=== PATIENT | male | born 1955 | race Caucasian/White ===

== ENCOUNTER 2021-09-26 20:27 | Emergency (ER) | payer MEDICARE, BC, SELFPAY ==
--- NOTE | ~2021-09-26 | XR_ITS ---
EXAM: XR foot RT min 3V DATE: 09/26/2021 21:02 HISTORY: DROPPED OBJECT ON FOOT, SWELLING/ABRASION ANTERIOR TARSALS . COMPARISON: None available. FINDINGS: Decreased mineralization. No fracture or dislocation. No lytic or blastic lesion. Joint sp aces are maintained. Plantar enthesopathy. No erosion or periosteal change. Dorsal soft tissue swelli ng. IMPRESSION: No acute osseous finding in the right foot. Reviewed, dictated and finalized at location K.
[2021-09-26 20:28] VITALS: BP 128/72; PULSE 69; RESP 16; TEMP 36.4; O2SAT 97
--- NOTE | 2021-09-26 21:13 | ED.LOWEXIN ---
HPI - Extremity Injury (Lower) General Chief Complaint: Extremity Injury, Lower Stated Complaint: Right foot injury Time Seen by Provider: 09/26/21 20:41 History of Present Illness HPI Narrative: 66-year-old male presents the emergency room for evaluation of right foot injury. Patient states that he dropped a heavy flute grinder on it about 2 hours prior to arrival. States he took a 10 mg THC gummy and is now pain-free. Patient was able to ambulate following injury. Review of Systems Review of Systems: CONSTITUTIONAL: Denies fever, chills, or sweats. EYES: Denies visual changes, redness, or discharge. ENT: Denies rhinorrhea, congestion, sore throat, or otalgia. CARDIOVASCULAR: Denies chest pain, palpitations, or edema. RESPIRATORY: Denies cough or dyspnea. GASTROINTESTINAL: Denies abdominal pain, nausea, vomiting, or diarrhea. GENITOURINARY: Denies dysuria or hematuria. SKIN: Denies rash or itching. MUSCULOSKELETAL: Reports right foot pain NEUROLOGIC: Denies headache, numbness, dizziness, or weakness. PSYCHIATRIC: Denies anxiety or depression. Exam Narrative: GENERAL: Well-appearing, well-nourished, no physical limitations, and in no acute distress. HEAD: Normocephalic, atraumatic. EYES: Conjunctivae normal, PERRLA and EOMI. CHEST: Clear to auscultation. No respiratory distress. No wheezes rales or rhonchi. No tenderness. HEART: Regular rate and rhythm. No murmur heard. Normal peripheral pulses. EXTREMITIES: Right foot: Soft tissue swelling noted to the dorsal surface of the midfoot. Overlying abrasion. No acute bony abnormality. Full range of motion. Neurovascular is intact distally. SKIN: Warm, dry, no rash. No noted wounds NEURO: No focal deficits. Alert and oriented x3. MAEW. CN's II-XI intact bilaterally, normal gait PSYCH: Cooperative. Normal mood and affect. Course Vital Signs Vital signs: Vital Signs Temperature 36.4 C L 09/26/21 20:28 Pulse Rate 69 09/26/21 20:28 Respiratory Rate 16 09/26/21 20:28 Blood Pressure 128/72 09/26/21 20:28 Pulse Oximetry 97 09/26/21 20:28 Oxygen Delivery Room Air 09/26/21 20:28 Temperature 36.4 C L 09/26/21 20:28 Pulse Rate 69 09/26/21 20:28 Respiratory Rate 16 09/26/21 20:28 Blood Pressure 128/72 09/26/21 20:28 Pulse Oximetry 97 09/26/21 20:28 Oxygen Delivery Room Air 09/26/21 20:28 Discharge Plan Discharge Clinical Impression: Contusion of foot, right Patient Disposition: Home, Self-Care Condition: Stable Instructions: Antibiotic Form, Foot Contusion (ED), Crush Injury (ED) Additional Instructions: May take Tylenol or ibuprofen as needed for pain. Recommending rest, keeping her foot elevated, may apply ice for the first 48 hours intermittently. Follow-up/Referrals: PHYSICIAN NOT ON STAFF,NONSTAFF [Non-Staff] - Time of Disposition: 21:20
== END 2021-09-26 21:52 | disposition home or self-care (01) ==
PROVIDERS: Emergency Provider Nurse Practitioner Family
DX: S90.31XA Contusion of right foot, initial encounter (principal); W20.8XXA Other cause of strike by thrown, projected or falling object, initial encounter
CPT/HCPCS: 73630; 99283